=== PATIENT | male | born 1945 | race Caucasian/White ===

== ENCOUNTER 2022-02-11 15:19 | Emergency (ER) | payer MEDICARE, OTHER ==
[2022-02-11 16:45] LABS: BASOPHIL 1.2 % (0-2); EOSINOPHIL 2.1 % (0-7); HCT 40.3 % (42.0-52.0); HGB 13.2 g/dl (13.2-18.0); MCH 32.6 pg (25.0-31.0); MCHC 32.8 g/dL (32.0-36.0); MCV 99.5 fL (78.0-100.0); MONOCYTE 8.1 % (0-12); MPV 10.4 fL (6.0-9.5); NRBC 0.2; PLT 264 K/uL (150-400); RBC 4.05 M/uL (4.70-6.00); RDW 14.5 % (11.5-14.0); WBC 10.8 K/uL (4.0-10.5)
[2022-02-11 16:49] LABS: INR 1.02 (0.9-1.2); PROTHROMBIN TIME 13.1 SECONDS (11.9-13.9)
[2022-02-11 16:50] LABS: PTT 29.5 SECONDS (24.9-34.6)
[2022-02-11 17:01] LABS: ALBUMIN 3.8 g/dL (3.4-5.0); BILIRUBIN - TOTAL 0.4 mg/dL (0.2-1.0); BUN/CREAT RATIO (CALC) 21.9 RATIO; CREATININE 1.05 mg/dL (0.67-1.17); GLOBULIN (CALCULATION) 2.6 g/dL; POTASSIUM 4.7 mmol/L (3.5-5.1); TOTAL PROTEIN 6.4 g/dL (6.4-8.2)
== END 2022-02-11 23:30 | disposition other institution (70) ==
LOC: FER 15:19 → EDBD 15:19 → FER 23:30
PROVIDERS: Emergency Medicine
DX: I71.2 Thoracic aortic aneurysm, without rupture (principal); I25.2 Old myocardial infarction; Z28.310 Unvaccinated for COVID-19
CPT/HCPCS: 36415; 71045; 71275; 72193; 80053; 84484; 85025; 85610; 85730; 93005; J7030